=== PATIENT | male | born 2000 | race Caucasian/White ===

== ENCOUNTER 2024-04-13 14:46 | Inpatient (IN) ==
[2024-04-13 15:55] LABS: Appearance Urine Clear (Clear); Bilirubin Urine Negative (Negative); Blood Urine Negative (Negative); Color Urine Yellow; Glucose Urine UA Negative (Negative); Ketones Urine Negative (Negative); Leukocyte Esterase Urine Negative (Negative); Nitrite Urine Negative (Negative); Protein Urine Negative (Negative); Specific Gravity Urine 1.019 (1.000-1.030); Urobilinogen Urine Negative (Negative); pH Urine 5.5 (4.5-7.5)
[2024-04-13 16:21] LABS: Basophils # (auto) 0.04 K/uL (0.00-0.20); Basophils % (auto) 0.8 %; Eosinophils # (auto) 0.04 K/uL (0.00-0.50); Eosinophils % (auto) 0.8 %; Hematocrit (blood only) 51.5 % (42.0-52.0); Hemoglobin 16.6 g/dl (14.0-18.0); Immature Granulocytes # (auto) 0.01 K/uL (0.01-0.20); Immature Granulocytes % (auto) 0.2 %; Lymphocytes % (auto) 31.4 %; Mean Corpuscular Hemoglobin 29.3 pg (25.0-34.0); Mean Corpuscular Hgb Conc 32.2 g/dL (32.0-36.0); Mean Platelet Volume 10.8 fL (9.4-12.4); Monocytes # (auto) 0.56 K/uL (0.11-0.59); Monocytes % (auto) 11.7 %; Neutrophils # (auto) 2.62 K/uL (1.40-6.50); Neutrophils % (auto) 55.1 %; Platelet Count 210 K/uL (130-400); RDW Coefficient of Variation 12.2 % (11.5-14.5); RDW Standard Deviation 40.5 fL (36.4-46.3); Red Blood Count 5.66 M/uL (4.70-6.10); White Blood Count 4.77 K/ul (4.8-10.8)
[2024-04-13 16:35] LABS: Bilirubin,Total 0.7 mg/dl (0.2-1.0); Potassium 4.3 mmol/L (3.5-5.1)
[2024-04-13 16:41] LABS: Albumin Globulin Ratio 1.9 (0.9-2); BUN Creatinine Ratio 9.9 (10-20); Creatinine Clr Calc Pharmacy 105.4 ml/min; Globulin 2.6 gm/dl (2.5-4.0); Total Protein 7.6 gm/dl (6.0-8.3)
--- NOTE | 2024-04-13 16:44 | Emergency Department Note ---
Impression & Plan Suicidal ideation, Depression with suicidal ideation ED Provider Note NAME: ELADIO LEMON AGE: 24 SEX: M : 2000 ARRIVES VIA: Walk-In INFORMANT: Patient, ED PROVIDER(S): Harmony Earl MD CHIEF COMPLAINT: Psychiatric evaluation, SI HPI: This is a 24-year-old male presenting for SI. Patient states that he is overwhelmed by his responsibilities. He does go to school in the area. He notes that he has been on Wellbutrin as prescribed his therapist recommended he come to the hospital for safety check/psychiatric evaluation. Patient does mention active suicidal ideations with plans. He mentions plans to hang himself with a belt and other ropes off of his second floor balcony. ROS: See above HPI for pertinent positives & negatives. A total of 10 systems reviewed and were otherwise negative. PAST MEDICAL HISTORY: See Below PAST SURGICAL HISTORY: See Below FAMILY HISTORY: See Below SOCIAL HISTORY: See Below HOME MEDICATIONS: See Below ALLERGIES: See Below VITALS: See Below PHYSICAL EXAMINATION: General: resting comfortably in no acute distress Head: Normocephalic and atraumatic Eyes: Normal inspection, extraocular muscles intact Ear, nose, throat: Normal external exam Neck: Normal range of motion Respiratory: speaking in full sentences, symmetric chest rise, no respiratory distress Cardiovascular: Regular rate/rhythm Extremities: moves all extremities Neuro: The patient awake and alert, appropriately conversive, symmetric faces, no focal deficits MEDICAL DECISION MAKING: This is a 24-year-old male presenting for SI. Patient notes suicidal ideation with active plan. He is here voluntarily request monitor to help. Will do screening psychiatric workup. - bloodwork is reviewed showing no significant leukocytosis, anemia, electrolyte or creatinine abnormality -Patient is medically clear at this time for psychiatric referral -Patient care signed oncoming physician, Dr. Solis pending psychiatric placement. Differential diagnosis: SI, HI, psychosis Past Med/Surg History Problem List (Updated 04/14/24 @ 21:49 by Harmony Earl MD) Depression with suicidal ideation (Acute) Suicidal ideation (Acute) Social History Smoking Status: Never smoker Preferred Language: Hebrew Communication Ability: Effective Electrotype Finisher Required: No Beliefs That Will Affect Care: None Feels Safe at Home: Yes Gender Identity: Male Assistive Devices: None Allergies Allergies Allergy/AdvReac Type Severity Reaction Status Date / Time No Known Allergies Allergy Unverified 04/13/24 19:45 Home Meds Home Medications Medication Instructions Recorded Confirmed bupropion HCl 150 mg 24 hr tablet, 150 mg PO QAM 04/13/24 04/13/24 extended release (Wellbutrin XL) hydroxyzine HCl 25 mg tablet 25 mg PO TID PRN Anxiety 04/13/24 04/13/24 Results & Data (ED) Vital Signs Vital Signs - 24 hr 04/13/24 14:54 04/13/24 15:51 Temperature 36.9 C 36.5 C Temperature Source Oral Oral Pulse Rate 82 Pulse Rate [Right Finger] 92 H Pulse Rhythm [Right Finger] Regular Pulse Strength [Right Finger] Normal Respiratory Rate 20 20 Respiratory Effort / Characteristics Non-Labored Spontaneous Non-Labored Spontaneous Respiratory Depth Normal Normal Respiratory Pattern Regular Regular Blood Pressure 134/74 Blood Pressure [Right Arm] 112/70 Blood Pressure Mean 94 Blood Pressure Mean [Right Arm] 84 Blood Pressure Position [Right Arm] Sitting Pulse Oximetry 98 98 Oxygen Delivery Method Room Air Room Air Sepsis Recent Fever Within 48 Hours No Sepsis New/Unexplained Change in Mental Status N/A Sepsis Action Taken by Nursing No Action Required Laboratory Data 04/13/24 16:03 04/13/24 16:03 Lab Results 04/13/24 04/13/24 Range/Units 15:11 16:03 WBC 4.77 L (4.8-10.8) K/ul RBC 5.66 (4.70-6.10) M/uL Hgb 16.6 (14.0-18.0) g/dl Hct 51.5 (42.0-52.0) % MCV 91.0 (80.0-100.0) fL MCH 29.3 (25.0-34.0) pg MCHC 32.2 (32.0-36.0) g/dL RDW Std Deviation 40.5 (36.4-46.3) fL RDW Coeff of Pavan 12.2 (11.5-14.5) % Plt Count 210 (130-400) K/uL MPV 10.8 (9.4-12.4) fL Immature Gran % (Auto) 0.2 % Neut % (Auto) 55.1 % Lymph % (Auto) 31.4 % [place] % (Auto) 11.7 % Eos % (Auto) 0.8 % Baso % (Auto) 0.8 % Neut # (Auto) 2.62 (1.40-6.50) K/uL Lymph # (Auto) 1.50 (1.20-3.40) K/uL [place] # (Auto) 0.56 (0.11-0.59) K/uL Eos # (Auto) 0.04 (0.00-0.50) K/uL Baso # (Auto) 0.04 (0.00-0.20) K/uL Immature Gran # (Auto) 0.01 (0.01-0.20) K/uL Sodium 139 (136-145) mmol/L Potassium 4.3 (3.5-5.1) mmol/L Chloride 104 (98-107) mmol/L Carbon Dioxide 30 (21-32) mmol/L Anion Gap 5 (3-11) BUN 9 (6-23) mg/dl Creatinine 0.91 (0.6-1.4) mg/dl Est Cr Clr Drug Dosing 105.4 ml/min eGFR 122.21 BUN/Creatinine Ratio 9.9 L (10-20) Glucose 74 (70-99(Fasting)) mg/dl Calcium 10.0 (8.6-10.3) mg/dl Total Bilirubin 0.7 (0.2-1.0) mg/dl AST 16 (13-39) U/L ALT 9 (7-52) U/L Alkaline Phosphatase 75 (34-104) U/L Total Protein 7.6 (6.0-8.3) gm/dl Albumin 5.0 (3.4-5.0) gm/dl Globulin 2.6 (2.5-4.0) gm/dl Albumin/Globulin Ratio 1.9 (0.9-2) TSH 0.926 (0.300-4.500) uIu/ml Urine Color Yellow Urine Appearance Clear (Clear) Urine pH 5.5 (4.5-7.5) Ur Specific [place] 1.019 (1.000-1.030) Urine Protein Negative (Negative) Urine Glucose (UA) Negative (Negative) Urine Ketones Negative (Negative) Urine Blood Negative (Negative) Urine Nitrite Negative (Negative) Urine Bilirubin Negative (Negative) Urine Urobilinogen Negative (Negative) Ur Leukocyte Esterase Negative (Negative) Salicylates < 3.0 L (3.0-30) mg/dl Urine Opiates Screen Neg (Neg) Ur Methadone, Qual Neg (Neg) Urine Fentanyl Screen Neg (Neg) Acetaminophen < 3 L (10-30) ug/ml Urine Barbiturates Neg (Neg) Ur Phencyclidine (PCP) Neg (Neg) U Amphetamin/Meth Scrn Neg (Neg) MDMA (Ecstasy) Screen Pos H (Neg) U Benzodiazepines Scrn Neg (Neg) Ur Cocaine Metabolite Neg (Neg) U Marijuana (THC) Screen Neg (Neg) Ethyl Alcohol mg/dL < 10.0 (<10.0) mg/dl SARS-CoV-2, RNA, NAAT NEGATIVE (NEGATIVE) Administered Medications Bupropion HCl (Bupropion Xl 150 Mg Tabcr) 150 mg PO QAM SHANNAN Stop: 05/14/24 08:59 Last Admin: 04/14/24 09:50 Dose: 150 mg Documented By: TLF Discontinued Medications Influenza Virus Vacc Triv Types A&B (Influenza Vacc [id number](6m+)/Pf (Iiv3) 0.5ml Syr) 0.5 ml IM .ONCE ONE Stop: 04/14/24 09:01 Last Admin: 04/14/24 10:00 Dose: 0.5 ml Documented By: TLF Discharge Plan Visit Data Chief Complaint: Mental Health Evaluation Stated Complaint: MENTAL HEALTH EVAL ED Provider: Hero Solis Discharge Problem: Suicidal ideation, Depression with suicidal ideation Patient Disposition: Admitted As Inpatient Discharge Instructions Interventions: ED Discharge Assessment Last Done: 04/13/24 23:14
[2024-04-13 16:54] LABS: Acetaminophen < 3 ug/ml (10-30); Salicylate < 3.0 mg/dl (3.0-30)
[2024-04-13 16:55] LABS: Thyroid Stimulating Hormone 0.926 uIu/ml (0.300-4.500)
[2024-04-13 17:02] LABS: Amphetamines+Metham, Urine Neg (Neg); Barbiturates, Urine Neg (Neg); Benzodiazepine, Urine Neg (Neg); Cocaine, Urine Neg (Neg); Fentanyl, Urine Neg (Neg); MDMA (Ecstacy), Urine Pos (Neg); Marijuana, Urine Neg (Neg); Methadone, Urine Neg (Neg); Opiate, Urine Neg (Neg); Phencyclidine, Urine Neg (Neg)
[2024-04-13] MEDS ORDERED: hydrOXYzine HCl 25 MG TAB PO PRN ×2 (21:50→23:48)
--- NOTE | 2024-04-13 21:54 | Emergency Department Note ---
ED Visit Note Received this patient in signout from Dr. Earl. See his note for full details. Patient with suicidal thoughts of possible hanging and wanting for voluntary inpatient treatment is reasonable. With case management assistance, referrals were made. Accepted to [facility] for further inpatient treatment. .
[2024-04-13] MEDS ORDERED: ALUMINUM/MAGNESIUM SUSP 30 ML UDC PO PRN (23:48)
[2024-04-13] MEDS ORDERED: ACETAMINOPHEN 325 MG TAB PO PRN (23:48)
[2024-04-13] MEDS ORDERED: MAGNESIUM HYDROXIDE SUSP 30 ML UDC PO PRN (23:48)
[2024-04-13] MEDS ORDERED: SODIUM CHLORIDE 0.65% NA SOLN 45 ML (OCEAN) PRN (23:48)
[2024-04-13] MEDS ORDERED: BISMUTH SUBSALICYLATE 262 MG CHEW PO PRN (23:48)
[2024-04-14] MEDS ORDERED: buPROPion XL 150 MG TABCR PO SCH (09:00)
[2024-04-14] MEDS: buPROPion XL 150 MG TABCR PO SCH (09:50)
[2024-04-14] MEDS: INFLUENZA VACC TS2024-25(6m+)/PF (IIV3) 0.5mL Syr IM ONE (10:00)
--- NOTE | 2024-04-14 16:05 | History & Physical ---
Date of Service April 14, 2024 Impression / Recommendations Impression 24 yr old M presenting with worsening depression & SI with plan. Symptoms consistent with MDD recurrent severe without psychotic features and JOEL. (1) Depression with suicidal ideation: (2) MDD (major depressive disorder), recurrent episode, severe: Psychotic features: without psychotic features Qualified Code(s): F33.2 - Major depressive disorder, recurrent severe without psychotic features (3) JOEL (generalized anxiety disorder): Plan 04/15/2024: -Increase fluoxetine to 20mg daily 04/14/2024: The patient was admitted to the [facility] ([facility] health unit) on q15 min checks (behavioral with suicide precautions) for safety. The patient will participate in group, recreational, and milieu therapies and will be offered additional individual and family sessions as clinically appropriate. -Fluoxetine 10mg started -Continue prior to admission Wellbutrin XL 150mg Overall, I spent a total of 60 minutes with this case, including review of chart, direct evaluation of the patient, counseling the patient, ordering medication, coordination with nursing, interdisciplinary team meeting, risk assessment, and documentation. Inventory Assets Strengths: intelligence, family support Needs: therapeutic support, social supports Suicide Risk Level Suicide Risk Level: Moderate (q15 min suicide checks) Risk Factors Assessment Male: Yes : No Do You Have Access To A Gun?: No Health Problems: No Mental Health Diagnoses: Yes Substance Use Disorders: No Previous Attempt: No Family History of Suicide: No Previous Psychiatric Hospitalization: No Hopelessness: Yes Protective Factors Assessment : No Responsible for Young Children: No Employed: No Stable Relationships: No Supportive Family: Yes Good Rapport with Provider: Yes Absence of Any Risk Factors Above: Yes Psychiatric History Identifying Data ELADIO LEMON is a 24-year-old M who currently lives alone, has a history of depression, and was admitted on 04/13/24 22:45 on a 201 voluntary commitment for depression with SI. Chief Complaint depression with SI & plan History of Present Illness ELADIO LEMON is a 24-year-old M who currently lives alone, has a history of depression, and was admitted on 04/13/24 22:45 on a 201 voluntary commitment for depression with SI. Patient went to his first therapist appointment to help manage worsening depression and reported SI to her, which prompted her recommending he obtain a crisis assessment. Patient reports having thoughts of suicide with specific plan - was going to fashion a noose out of belts and hang off his balcony, says this seems like the most likely method to work with least chance of complications. Is not sure why he did not act on it as he has been feeling quite depressed and struggling. Currently is able to identify not wanting to hurt his family, however admits that this was difficult to appreciate prior to coming to hospital. Reports prior history of depression as well, described as episodic in nature with anhedonia, isolation, amotivation, low energy, negative ruminations, poor appetite. Prior episodes described as initially mild but progressively more severe with each episode. Sought out therapy recently as current episode has been more severe and difficult to manage. Also describes significant anxiety with overthinking, ruminations, excessive worry, thinking about various ways things can go wrong and ruminations on his own shortcomings. This is described as persisting even when not depressed. Also with intermittent panic attacks. Prior medication trials: fluoxetine - was helpful but thinks it may have increased appetite (though now thinks this may have been more due to improvement in depression and appetite improving). zoloft - took with wellbutrin, had SEs (shaking, headaches) Wellbutrin XL 150mg daily - currently taking, is not sure if helping but thinks may have offered some mild benefit Past Psychiatric History Previous Psych History: on & off therapy in the past, see hpi for more details Current Psychiatric Diagnosis: Depression, Anxiety Previous Psych Admissions: none Do You Have Access To A Gun?: No History of Previous Suicide Attempt: No Past Medication Trials: fluoxetine - was helpful but thinks it may have increased appetite (though now thinks this may have been more due to improvement in depression and appetite improving). zoloft - took with wellbutrin, had SEs (shaking, headaches) Wellbutrin XL 150mg daily - currently taking, is not sure if helping but thinks may have offered some mild benefit Allergies Allergy/AdvReac Type Severity Reaction Status Date / Time No Known Allergies Allergy Unverified 04/13/24 19:45 Home Medications Medication Instructions Recorded Confirmed Type bupropion HCl 150 mg 24 hr tablet, 150 mg PO QAM 04/13/24 04/13/24 History extended release (Wellbutrin XL) hydroxyzine HCl 25 mg tablet 25 mg PO TID PRN Anxiety 04/13/24 04/13/24 History Family History Family History of: Depression (parents) Alcohol History Hx of Alcohol Use Over the Past 12 Months: No (2-3 drinks approx once per month) AUDIT Total Score: 2 Smoking Use Have You Smoked or Used Tobacco Products in the Last 30 Days: No Smoking Status: Never smoker Substance History Hx of Prescription Med Misuse Over the Past 12 Months: No Hx of Over the Counter Med Misuse Over the Past 12 Months: No Hx of Inhalent Misuse Over the Past 12 Months: No Hx of Organic Substance Use Over the Past 12 Months: No Hx of Illegal Substances/Street Drug Use Over Past 12 Months: No Problems as a Result of Past Substance Use: None Identified Personal History Living Arrangements: Home Highest Grade Completed: Graduate School Marital Status: Single Number Of Children: 0 Beliefs That Will Affect Care: None Hx Legal Problems: No Hx Traumatic Life Events: No (denies) Patient History Social History Smoking Status: Never smoker Preferred Language: Bolivian Communication Ability: Effective Digital Strategist Senior Manager Required: No Beliefs That Will Affect Care: None Feels Safe at Home: Yes Gender Identity: Male Assistive Devices: None Physical Exam Psychiatric: Orientation: alert and oriented x 3 Apperance: appropriately dressed and appropriately groomed Eye Contact: good eye contact Motor Behavior: no abnormal motor movements Speech: normal rate/rhythm/volume of speech (relatively monotone) Affect: + depressed affect and + constricted affect Mood: + depressed mood and + anxious mood Thought Process: goal directed thought process Thought Content: reality based without delusions Suicidal Thoughts: denies suicidal plan (none for hospital) and denies suicidal intent; + reports suicidal thoughts Homicidal Thoughts: denies homicidal thoughts Hallucinations: no auditory hallucinations and no visual hallucinations Cognition: recent memory grossly intact, remote memory grossly intact, attention grossly intact and language grossly intact Estimated Intelligence: consistent with education level Insight: + fair insight Judgment: + limited judgement Vital Signs (Past 24 Hours): Last Vital Signs Temp 36.6 C 04/13/24 23:30 Pulse 61 04/13/24 23:30 Resp 18 04/13/24 23:30 BP 112/76 04/13/24 23:30 Pulse Ox 100 04/13/24 23:30 O2 Del Method Room Air 04/13/24 23:30 Exam Statement: A physical exam was performed in the ED by Dr. Earl for the purposes of medical clearance. I accept that physical as correct and adequate for the purposes of the inpatient physical exam. Results & [facility] Laboratory Results Laboratory Results - last 24 hr 04/13/24 04/13/24 15:11 16:03 WBC 4.77 L RBC 5.66 Hgb 16.6 Hct 51.5 MCV 91.0 MCH 29.3 MCHC 32.2 RDW Std Deviation 40.5 RDW Coeff of [place] 12.2 Plt Count 210 MPV 10.8 Immature Gran % (Auto) 0.2 Neut % (Auto) 55.1 Lymph % (Auto) 31.4 [place] % (Auto) 11.7 Eos % (Auto) 0.8 Baso % (Auto) 0.8 Neut # (Auto) 2.62 Lymph # (Auto) 1.50 [place] # (Auto) 0.56 Eos # (Auto) 0.04 Baso # (Auto) 0.04 Immature Gran # (Auto) 0.01 Sodium 139 Potassium 4.3 Chloride 104 Carbon Dioxide 30 Anion Gap 5 BUN 9 Creatinine 0.91 Est Cr Clr Drug Dosing 105.4 eGFR 122.21 BUN/Creatinine Ratio 9.9 L Glucose 74 Calcium 10.0 Total Bilirubin 0.7 AST 16 ALT 9 Alkaline Phosphatase 75 Total Protein 7.6 Albumin 5.0 Globulin 2.6 Albumin/Globulin Ratio 1.9 TSH 0.926 Salicylates < 3.0 L Urine Opiates Screen Neg Ur Methadone, Qual Neg Urine Fentanyl Screen Neg Acetaminophen < 3 L Urine Barbiturates Neg Ur Phencyclidine (PCP) Neg U Amphetamin/Meth Scrn Neg Urine MDEA Pending MDMA (Ecstasy) Screen Pos H MDMA Pending Urine MDMA Pending U Benzodiazepines Scrn Neg Ur Cocaine Metabolite Neg U Marijuana (THC) Screen Neg Ethyl Alcohol mg/dL < 10.0 SARS-CoV-2, RNA, NAAT NEGATIVE Current Inpatient Medications Current Inpatient Medications: Current Inpatient Medications Acetaminophen (Acetaminophen 325 Mg Tab) 650 mg PO Q4H PRN PRN Reason: Headache or Minor Fever Stop: 05/13/24 23:47 Al Hydrox/Mg Hydrox/Simethicone (Aluminum/Magnesium Susp 30 Ml Udc) 30 ml PO Q4H PRN PRN Reason: GI Upset Stop: 05/13/24 23:47 Bismuth Subsalicylate (Bismuth Subsalicylate 262 Mg Chew) 2 tab PO Q30M PRN PRN Reason: Loose Stool/Diarrhea Stop: 05/13/24 23:47 Bupropion HCl (Bupropion Xl 150 Mg Tabcr) 150 mg PO QAM SHANNAN Stop: 05/14/24 08:59 Last Admin: 04/14/24 09:50 Dose: 150 mg Hydroxyzine HCl (Hydroxyzine Hcl 25 Mg Tab) 50 mg PO HSZ PRN PRN Reason: Insomnia Stop: 05/13/24 23:47 Hydroxyzine HCl (Hydroxyzine Hcl 25 Mg Tab) 25 mg PO Q4H PRN PRN Reason: Anxiety Stop: 05/13/24 23:47 Magnesium Hydroxide (Magnesium Hydroxide Susp 30 Ml Udc) 30 ml PO DAILY PRN PRN Reason: Constipation Stop: 05/13/24 23:47 Sodium Chloride (Sodium Chloride 0.65% Na Soln 45 Ml ([place])) 1 - 2 sprays NA PRN PRN PRN Reason: Nasal Dryness/Congestion Stop: 05/13/24 23:47
[2024-04-15] MEDS: FLUoxetine HCL 10 MG CAP PO SCH (08:44)
--- NOTE | 2024-04-15 09:37 | Psychiatric Progress Note ---
Date of Service April 15, 2024 Impression / Recommendations Impression PETER LEMON is a 24-year-old man and [employer] student has a history of depression, anxiety and self-harm, and was admitted on 04/13/24 22:45 on a 201 voluntary commitment for SI with plan to hang himself. Diagnostically consistent with major depressive disorder, generalized anxiety disorder and suspect component of cluster B traits vs OCPD. Reviewed medications and discussed risks, benefits and alternatives. He continues to consent to use of Wellbutrin and fluoxetine for depression and fluoxetine for anxiety. Reviewed side effects including but not limited to: GI, GARCIA, sexual side effects, and counseled on black box warning of potential for emergence of or increased SI and need to let staff know should this occur or should they feel unsafe. Also discussed importance of seeking emergency care following discharge if this side effect occurs in the future. Overall, I spent a total of 55 minutes on this case including meeting with the patient, reviewing the chart, nursing report, multidisciplinary team meeting, orders, and documentation. (1) Depression with suicidal ideation: (2) MDD (major depressive disorder), recurrent episode, severe: (3) JOEL (generalized anxiety disorder): Plan 04/15/2024: -Increase fluoxetine to 20mg daily 04/14/2024: The patient was admitted to the [facility] ([facility] mental health unit) on q15 min checks (behavioral with suicide precautions) for safety. The patient will participate in group, recreational, and milieu therapies and will be offered additional individual and family sessions as clinically approp riate. -Fluoxetine 10mg started -Continue prior to admission Wellbutrin XL 150mg Inventory Assets Strengths: supportive relationships, willing to get treatment Needs: safety and stabilization, medication adjustment, additional coping skills, increased outpatient services Suicide Risk Level Suicide Risk Level: High-Moderate (q15 min suicide checks) (SI with plan and depression prior to admission but SI lessening in hospital, feels safe here, able to ask for support) Risk Factors Assessment Male: Yes : No Do You Have Access To A Gun?: No Health Problems: No Mental Health Diagnoses: Yes Substance Use Disorders: No Previous Attempt: No Previous Psychiatric Hospitalization: No Protective Factors Assessment Employed: Yes (student) Stable Relationships: Yes Supportive Family: Yes Good Rapport with Provider: Yes (therapist) Interval History Identifying Information PETER LEMON is a 24-year-old man and [employer] student has a history of depression, anxiety and self-harm, and was admitted on 04/13/24 22:45 on a 201 voluntary commitment for SI with plan to hang himself. Chief Complaint "I've had a lot of stress". Review of Systems Sleep Information Total Hours of Sleep: 6 Sleep Comments: Meal Information Percent Meal Consumed - Breakfast: 100 Percent Meal Consumed - Lunch: 100 Percent Meal Consumed - Dinner: 100 Subjective Subjective Patient was seen & assessed and interval progress reviewed with treatment team nursing and social work. He's been interactive with peers and engaging in groups. Discusses increased stress and depression and anxiety related to this. Ideally he should be starting to apply for jobs for this upcoming summer but has been overwhelmed by this. He describes that his SI has been lessening since being in the hospital and attributes this in part to recognizing that his SI seems to be a means of "escaping" his stress. He's trying to not fall into this pattern of thinking and is having some success so far, but still having periods of SI. Discusses that his self-harm is "maladaptive" but he feels it is often the thing that helps him cope when he feels overwhelmed by stress, frustration and feeling "stuck". Tolerating medications so far, denies any increased anxiety from Wellbutrin. Is having strange dreams "not my own" but he recalls having these in the past while on Wellbutrin and doesn't find this distressing or bothersome. Physical Exam Psychiatric Orientation: alert and oriented x 3 Apperance: appropriately dressed and appropriately groomed Eye Contact: good eye contact Motor Behavior: no abnormal motor movements Speech: normal rate/rhythm/volume of speech Affect: + depressed affect and + constricted affect Mood: + depressed mood and + anxious mood Thought Process: goal directed thought process Thought Content: reality based without delusions Suicidal Thoughts: denies suicidal plan (none for hospital) and denies suicidal intent; + reports suicidal thoughts Homicidal Thoughts: denies homicidal thoughts Hallucinations: no auditory hallucinations and no visual hallucinations Cognition: recent memory grossly intact, remote memory grossly intact, attention grossly intact and language grossly intact Estimated Intelligence: consistent with education level Insight: + fair insight Judgment: + limited judgement Vital Signs (Past 24 Hours) Last Vital Signs Temp 36.6 C 04/15/24 06:50 Pulse 66 04/15/24 06:50 Resp 16 04/15/24 06:50 BP 102/65 04/15/24 06:51 Pulse Ox 96 04/15/24 06:50 O2 Del Method Room Air 04/15/24 06:50 Results & Data ([facility]) Current Inpatient Medications Current Inpatient Medications: Current Inpatient Medications Acetaminophen (Acetaminophen 325 Mg Tab) 650 mg PO Q4H PRN PRN Reason: Headache or Minor Fever Stop: 05/13/24 23:47 Al Hydrox/Mg Hydrox/Simethicone (Aluminum/Magnesium Susp 30 Ml Udc) 30 ml PO Q4H PRN PRN Reason: GI Upset Stop: 05/13/24 23:47 Bismuth Subsalicylate (Bismuth Subsalicylate 262 Mg Chew) 2 tab PO Q30M PRN PRN Reason: Loose Stool/Diarrhea Stop: 05/13/24 23:47 Bupropion HCl (Bupropion Xl 150 Mg Tabcr) 150 mg PO QAM SHANNAN Stop: 05/14/24 08:59 Last Admin: 04/15/24 08:44 Dose: 150 mg Fluoxetine HCl (Fluoxetine Hcl 10 Mg Cap) 10 mg PO QAM SHANNAN Stop: 05/15/24 08:59 Last Admin: 04/15/24 08:44 Dose: 10 mg Hydroxyzine HCl (Hydroxyzine Hcl 25 Mg Tab) 50 mg PO HSZ PRN PRN Reason: Insomnia Stop: 05/13/24 23:47 Hydroxyzine HCl (Hydroxyzine Hcl 25 Mg Tab) 25 mg PO Q4H PRN PRN Reason: Anxiety Stop: 05/13/24 23:47 Magnesium Hydroxide (Magnesium Hydroxide Susp 30 Ml Udc) 30 ml PO DAILY PRN PRN Reason: Constipation Stop: 05/13/24 23:47 Sodium Chloride (Sodium Chloride 0.65% Na Soln 45 Ml ([place])) 1 - 2 sprays NA PRN PRN PRN Reason: Nasal Dryness/Congestion Stop: 05/13/24 23:47 Mental Health & Subst Abuse Tx Therapist Name of Therapist: Dr. Yvette Macias Date of Therapist Appointment: 02/11/24 Time of Therapist Appointment: N/A Professional Advisor Name of Professional Advisor: N/A Post Discharge Appointments Primary Care Physician Name Of Family Doctor/PCP: Dr. Felipa Cuellar Time of Appointment with PCP: 02/10/24 Specialist Name of Specialist: Peter Crystal - Professional Advisor @ [employer]
[2024-04-15] MEDS: hydrOXYzine HCl 25 MG TAB PO PRN (23:50)
[2024-04-16] MEDS: FLUoxetine HCL 20 MG CAP PO SCH (08:44)
--- NOTE | 2024-04-16 09:17 | Psychiatric Progress Note ---
Date of Service April 16, 2024 Impression / Recommendations Impression PETER LEMON is a 24-year-old man and [employer] student has a history of depression, anxiety and self-harm, and was admitted on 04/13/24 22:45 on a 201 voluntary commitment for SI with plan to hang himself. Diagnostically consistent with major depressive disorder, generalized anxiety disorder and suspect component of OCPD. A: Mood improving, thinking about ways to address some of the driving factors of his SI including when he gets overwhelmed academically and procrastinates. Needs family support meeting, will need additional outpatient provider for psychiatric medication management. Tolerating fluoxetine and Wellbutrin well without any side effects. Overall, I spent a total of 50 minutes on this case including meeting with the patient, reviewing the chart, nursing report, multidisciplinary team meeting, orders, and documentation. (1) Depression with suicidal ideation: (2) MDD (major depressive disorder), recurrent episode, severe: (3) JOEL (generalized anxiety disorder): Plan 04/16/2024: Continue current medications and tx plan. 04/15/2024: -Increase fluoxetine to 20mg daily 04/14/2024: The patient was admitted to the [facility]) on q15 min checks (behavioral with suicide precautions) for safety. The patient will participate in group, recreational, and milieu therapies and will be offered additional individual and family sessions as clinically appropriate. -Fluoxetine 10mg started -Continue prior to admission Wellbutrin XL 150mg Overall, I spent a total of 60 minutes with this case, including review of chart, direct evaluation of the patient, counseling the patient, ordering medication, coordination with nursing, interdisciplinary team meeting, risk assessment, and documentation. Inventory Assets Strengths: intelligence, family support Needs: therapeutic support, social supports Suicide Risk Level Suicide Risk Level: Moderate (q15 min suicide checks) (SI with plan and depression prior to admission but today denies SI, mood improving, feels safe here, able to ask for support) Risk Factors Assessment Male: Yes : No Do You Have Access To A Gun?: No Health Problems: No Mental Health Diagnoses: Yes Substance Use Disorders: No Previous Attempt: No Family History of Suicide: No Previous Psychiatric Hospitalization: No Hopelessness: Yes Protective Factors Assessment : No Responsible for Young Children: No Employed: Yes (student) Stable Relationships: No Supportive Family: Yes Good Rapport with Provider: Yes Absence of Any Risk Factors Above: Yes Interval History Identifying Information PETER LEMON is a 24-year-old man and [employer] student has a history of depression, anxiety and self-harm, and was admitted on 04/13/24 22:45 on a 201 voluntary commitment for SI with plan to hang himself. Chief Complaint "I'm trying to stay focused on ways to add structure to my day to mitigate stress". Review of Systems Sleep Information Total Hours of Sleep: 6.25 Sleep Comments: PRN Vistaril Meal Information Percent Meal Consumed - Breakfast: 100 Percent Meal Consumed - Lunch: 75 Percent Meal Consumed - Dinner: 100 Subjective Subjective Patient was seen & assessed and interval progress reviewed with treatment team nursing and social work. Watched a movie with peers. Attending groups. Visited with his parents. Took prn Vistaril last night which he found helpful for sleep, he usually sleeps well but finds the bed here not very comfortable and suspects that being away from his normal space is also impacting his sleep a bit. He doesn't anticipate he'll have issues with sleep once he's at home but likes having option of Vistaril. Today reports improvement in his mood. Denies SI. Discusses ways he is hoping to reduce some of his stressors, such as procrastination, that he feels contributed to his worsening depression and feeling a need to escape prompting SI. He feels that recognizing that his thoughts of suicide were filling the role of a "mental escape" is helping him not have these thoughts now. Discussed some of what he had shared in his therapy intake and initial outpatient appointment based on my review of the documentation sent from his outpatient therapist. He reflects on his goal of working in therapy to challenge some of his cognitive distortions and high expectations he has for himself that he feels leads to having shame when he can't accomplish what he wants or cannot meet his high expectations. He is hoping for discharge tomorrow, if today goes well, as he wants to get back to his classes. He asked about we reviewed strategies to overcome some of his procrastination and ways to limit screentime use as he feels this also gets in the way of his routine. Physical Exam Psychiatric Orientation: alert and oriented x 3 Apperance: appropriately dressed and appropriately groomed Eye Contact: good eye contact Motor Behavior: no abnormal motor movements Speech: normal rate/rhythm/volume of speech Affect: + constricted affect Mood: + depressed mood and + anxious mood Thought Process: goal directed thought process Thought Content: reality based without delusions Suicidal Thoughts: denies suicidal thoughts, denies suicidal plan and denies suicidal intent Homicidal Thoughts: denies homicidal thoughts Hallucinations: no auditory hallucinations and no visual hallucinations Cognition: recent memory grossly intact, remote memory grossly intact, attention grossly intact and language grossly intact Estimated Intelligence: consistent with education level Insight: + fair insight Judgment: + fair judgement Vital Signs (Past 24 Hours) Last Vital Signs Temp 36.6 C 04/16/24 06:00 Pulse 74 04/16/24 06:32 Resp 18 04/16/24 06:00 BP 95/62 L 04/16/24 06:32 Pulse Ox 98 04/16/24 06:00 O2 Del Method Room Air 04/16/24 06:00 Results & Data ([facility]) Current Inpatient Medications Current Inpatient Medications: Current Inpatient Medications Acetaminophen (Acetaminophen 325 Mg Tab) 650 mg PO Q4H PRN PRN Reason: Headache or Minor Fever Stop: 05/13/24 23:47 Al Hydrox/Mg Hydrox/Simethicone (Aluminum/Magnesium Susp 30 Ml Udc) 30 ml PO Q4H PRN PRN Reason: GI Upset Stop: 05/13/24 23:47 Bismuth Subsalicylate (Bismuth Subsalicylate 262 Mg Chew) 2 tab PO Q30M PRN PRN Reason: Loose Stool/Diarrhea Stop: 05/13/24 23:47 Bupropion HCl (Bupropion Xl 150 Mg Tabcr) 150 mg PO QAM SHANNAN Stop: 05/14/24 08:59 Last Admin: 04/16/24 08:44 Dose: 150 mg Fluoxetine HCl (Fluoxetine Hcl 20 Mg Cap) 20 mg PO QAM SHANNAN Stop: 05/16/24 08:59 Last Admin: 04/16/24 08:44 Dose: 20 mg Hydroxyzine HCl (Hydroxyzine Hcl 25 Mg Tab) 50 mg PO HSZ PRN PRN Reason: Insomnia Stop: 05/13/24 23:47 Last Admin: 04/15/24 23:50 Dose: 50 mg Hydroxyzine HCl (Hydroxyzine Hcl 25 Mg Tab) 25 mg PO Q4H PRN PRN Reason: Anxiety Stop: 05/13/24 23:47 Magnesium Hydroxide (Magnesium Hydroxide Susp 30 Ml Udc) 30 ml PO DAILY PRN PRN Reason: Constipation Stop: 05/13/24 23:47 Sodium Chloride (Sodium Chloride 0.65% Na Soln 45 Ml ([place])) 1 - 2 sprays NA PRN PRN PRN Reason: Nasal Dryness/Congestion Stop: 05/13/24 23:47 Mental Health & Subst Abuse Tx Therapist Name of Therapist: Dr. Yvette Macias Date of Therapist Appointment: 02/11/24 Time of Therapist Appointment: N/A [employer] Worker Name of [employer] Maintenance Worker: N/A Post Discharge Appointments Primary Care Physician Name Of Family Doctor/PCP: Dr. Felipa Cuellar Time of Appointment with PCP: 02/10/24 Specialist Name of Specialist: Peter Crystal - [employer] Worker @ [employer] [facility] [employer] [facility] (2) MDD (major depressive disorder), recurrent episode, severe Psychotic features: without psychotic features Qualified Code(s): F33.2 - Major depressive disorder, recurrent severe without psychotic features
--- NOTE | 2024-04-17 08:56 | Discharge Summary ---
Date of Service April 17, 2024 History of Present Illness Per admission H&P by Dr. Watts: PETER LEMON is a 24-year-old M who currently lives alone, has a history of depression, and was admitted on 04/13/24 22:45 on a 201 voluntary commitment for depression with SI. Patient went to his first therapist appointment to help manage worsening depression and reported SI to her, which prompted her recommending he obtain a crisis assessment. Patient reports having thoughts of suicide with specific plan - was going to fashion a noose out of belts and hang off his balcony, says this seems like the most likely method to work with least chance of complications. Is not sure why he did not act on it as he has been feeling quite depressed and struggling. Currently is able to identify not wanting to hurt his family, however admits that this was difficult to appreciate prior to coming to hospital. Reports prior history of depression as well, described as episodic in nature with anhedonia, isolation, amotivation, low energy, negative ruminations, poor appetite. Prior episodes described as initially mild but progressively more severe with each episode. Sought out therapy recently as current episode has been more severe and difficult to manage. Also describes significant anxiety with overthinking, ruminations, excessive worry, thinking about various ways things can go wrong and ruminations on his own shortcomings. This is described as persisting even when not depressed. Also with intermittent panic attacks. Prior medication trials: fluoxetine - was helpful but thinks it may have increased appetite (though now thinks this may have been more due to improvement in depression and appetite improving). zoloft - took with wellbutrin, had SEs (shaking, headaches) Wellbutrin XL 150mg daily - currently taking, is not sure if helping but thinks may have offered some mild benefit Physical Exam Vital Signs (Past 24 Hours) Last Vital Signs Temp 36.6 C 04/17/24 06:41 Pulse 72 04/17/24 06:41 Resp 16 04/17/24 06:41 BP 99/58 L 04/17/24 06:43 Pulse Ox 98 04/17/24 06:41 O2 Del Method Room Air 04/17/24 06:41 Principal Diagnosis Major Depressive Disorder Psychiatric Data See daily stay summary. In short, patient was engaged with the social/therapeutic milieu of the unit, safety was maintained and the patient was cooperative with care. Medication changes included continuation of prior to admission Wellbutrin 150mg XL and addition of fluoxetine 20mg daily for MDD and JOEL and they tolerated this well. If anxiety worsens in the future could consider discontinuation of Wellbutrin in favor of fluoxetine monotherapy or option in future for SNRI trial if symptoms re-emerge. A support session was held and safety plan was completed prior to discharge. They participated in safety planning and in discussions about ways to seek support and recognizing warning signs and utilizing coping skills. Reviewed ways to have their safety plan and contacts easily available should thoughts of SI re-emerge in the future. Reviewed importance of seeking emergency care should SI intensify, worsen or should they feel unsafe in the future which they agree to do. On the day of discharge they stated their mood was "positive" and remained future-oriented including getting back to classes and activities, spending time with his mom and engaging in aftercare appointments for psychiatry, therapy, primary care provider and [employer] student care and advocacy. Day of Discharge Assessment Today the patient voices readiness for discharge. They note improvement in mood and anxiety. They deny thoughts of harm to self or others. Thoughts are org anized and they are clinically improved from admission. There is no evidence of psychosis. They improved in the hospital with support and medication adjustments. They agree to take medications as prescribed and keep follow-up appointments. At the time of the discharge they are deemed to be stable and appropriate for outpatient level of care. They are not deemed to be at imminent risk of harm to self or others. They are aware of emergency and crisis services. Knows to call 911 or go to nearest emergency care center if in a crisis which cannot be handled as an outpatient. Suicide risk assessment: Acute risk is low given improvement in mood and denial of SI, lack of access to lethal means, hopefulness. Chronic risk is moderate given some non-modifiable risk factors: psychiatric co-morbid diagnoses, hx self-harm but also with protective factors including: student, good social support, sense of responsibility to family and social supports, outpatient care in place, positive coping skills, positive problem solving, willingness to engage with treatment and self-observation. Counseled on ways to reduce acute and chronic risk including engaging with outpatient providers, using safety plan if needed, utilizing supports, taking medication, and using coping skills. Modifiable risk factors of SI and depression were addressed during hospitalization through development of new coping skills, support meeting, safety planning, and medication adjustments. Discharge physical exam: See admission H&P, MSE per above and day of discharge summary. Overall, I spent a total of 35 minutes on this case including meeting with the patient, reviewing the chart, nursing report, multidisciplinary team meeting, discharge orders, anticipatory planning, safety planning, risk assessment and documentation. Transition of Care Transition Of Care Record: was reviewed with the patient Advance Directives Advance Directives Information Provided: Yes Advance Directives: No Mental Health Advance Directive: No Advance Directives on File: No Living Will: No Power of Seasonal Driver: No Advance Directives Reason:: Declines as Mental Health Visit. Suicide Risk Level Suicide Risk Level Comments: Acute risk is low, see assessment above Risk Factors Assessment Male: Yes : No Do You Have Access To A Gun?: No Health Problems: No Mental Health Diagnoses: Yes Substance Use Disorders: No Previous Attempt: No Family History of Suicide: No Previous Psychiatric Hospitalization: No Hopelessness: No Protective Factors Assessment : No Responsible for Young Children: No Employed: Yes (student) Stable Relationships: Yes Supportive Family: Yes Good Rapport with Provider: Yes Absence of Any Risk Factors Above: Yes Discharge Data Lab Results 04/13/24 04/13/24 15:11 16:03 WBC 4.77 L RBC 5.66 Hgb 16.6 Hct 51.5 MCV 91.0 MCH 29.3 MCHC 32.2 RDW Std Deviation 40.5 RDW Coeff of Pavan 12.2 Plt Count 210 MPV 10.8 Immature Gran % (Auto) 0.2 Neut % (Auto) 55.1 Lymph % (Auto) 31.4 [place] % (Auto) 11.7 Eos % (Auto) 0.8 Baso % (Auto) 0.8 Neut # (Auto) 2.62 Lymph # (Auto) 1.50 [place] # (Auto) 0.56 Eos # (Auto) 0.04 Baso # (Auto) 0.04 Immature Gran # (Auto) 0.01 Sodium 139 Potassium 4.3 Chloride 104 Carbon Dioxide 30 Anion Gap 5 BUN 9 Creatinine 0.91 Est Cr Clr Drug Dosing 105.4 eGFR 122.21 BUN/Creatinine Ratio 9.9 L Glucose 74 Calcium 10.0 Total Bilirubin 0.7 AST 16 ALT 9 Alkaline Phosphatase 75 Total Protein 7.6 Albumin 5.0 Globulin 2.6 Albumin/Globulin Ratio 1.9 TSH 0.926 Urine Color Yellow Urine Appearance Clear Urine pH 5.5 Ur Specific [place] 1.019 Urine Protein Negative Urine Glucose (UA) Negative Urine Ketones Negative Urine Blood Negative Urine Nitrite Negative Urine Bilirubin Negative Urine Urobilinogen Negative Ur Leukocyte Esterase Negative Salicylates < 3.0 L Urine Opiates Screen Neg Ur Methadone, Qual Neg Urine Fentanyl Screen Neg Acetaminophen < 3 L Urine Barbiturates Neg Ur Phencyclidine (PCP) Neg U Amphetamin/Meth Scrn Neg MDMA (Ecstasy) Screen Pos H U Benzodiazepines Scrn Neg Ur Cocaine Metabolite Neg U Marijuana (THC) Screen Neg Ethyl Alcohol mg/dL < 10.0 SARS-CoV-2, RNA, NAAT NEGATIVE Hospital Course (1) Depression with suicidal ideation: (2) MDD (major depressive disorder), recurrent episode, severe: (3) JOEL (generalized anxiety disorder): Plan 04/17/2024: Safe and ready for discharge 04/16/2024: Continue current medications and tx plan. 04/15/2024: -Increase fluoxetine to 20mg daily 04/14/2024: The patient was admitted to the [facility] ([facility]) on q15 min checks (behavioral with suicide precautions) for safety. The patient will participate in group, recreational, and milieu therapies and will be offered additional individual and family sessions as clinically appropriate. -Fluoxetine 10mg started -Continue prior to admission Wellbutrin XL 150mg Mental Health & Subst Abuse Tx Therapist Name of Therapist: Dr. Yvette Macias Date of Therapist Appointment: 02/11/24 Time of Therapist Appointment: N/A [employer] Machine Operator Name of [employer] Operator: N/A Post Discharge Appointments Primary Care Physician Name Of Family Doctor/PCP: Dr. Felipa Cuellar Time of Appointment with PCP: 02/10/24 Specialist Name of Specialist: Peter Crystal - [employer] Machine Operator @ [employer] [facility] Discharge Plan Discharge Items Patient Disposition: Home - Self-Care Reason For Visit: UNSPECIFIED DEPRESSION Discharge Diagnosis: Major Depressive Disorder Activity: Resume your previous activity Non-emergency contact: Primary Care Provider, Psychiatrist and Therapist Call non-emergency contact if: you have any medication questions and your symptoms worsen Follow-up/Referrals: Felipa Cuellar MD [Primary Care Provider] - Diet: Regular Addtl Attending Provider Instructions: Optional mobile apps: -Suicide safety plan -Virtual Hope Box -Headspace $ SPECIAL CARE INSTRUCTIONS: 1. Follow through with your scheduled aftercare appointments. If unable to keep an appointment, please call to reschedule. 2. Take your medication only as prescribed. Medication should not be changed or stopped without the approval of your doctor. In the event of worsening symptoms or concerns about side effects, contact your doctor immediately. 3. Utilize new healthy coping skills, anger management skills, and stress management skills learned during your hospitalization. Journal feelings and process them with a support person. Identify stressors or situations that may result in relapse, deterioration or inappropriate behaviors and develop a plan to deal with those issues. 4. If your coping skills are ineffective and you are in crisis, contact your outpatient providers for direction. If unable to reach your providers, please call the [facility] CRISIS LINE AT , go to the [facility] walk-in center at [address], [place], or go to the closest Emergency Room. 5. Avoid alcohol and un-prescribed drugs. 6. You have been provided with the Mental Health Advance Directives Pamphlet for your review. 7. Your condition is stable for discharge to outpatient level of care, but recovery is an ongoing process. Ifthoughts to harm yourself or others return, follow the safety plan developed during your stay. Planning for a safe return home includes securing weapons. Our treatment team recommends weaponsbe removed from the home until your outpatient provider reassesses your progress. In rare cases where the items themselvescannot be removed, guns and ammunitionshould be secured separatelyand keys stored by a reliable personoutside of the home. If you were admitted on an involuntary commitment, the police or other legal authorities may be involved in this process. AFTERCARE APPOINTMENTS: * Please call your insurance company prior to your scheduled appointment to confirm your aftercare providers are covered. Take your insurance information to your appointments. WHO TO CALL AND WHEN: Medical Emergencies: For questions or emergencies related to your hospital stay, please contact the Inpatient Behavioral Health Unit at [phone]. A supervisor cytology is on-call 25/01 for the Behavioral Health Unit for emergencies At any time you feel your situation is an emergency, you may also call 911 immediately. National Crisis Hotline: 981 Pending Studies at Discharge: No Stand-Alone Forms: [facility] Medications and DC Order Prescriptions: New fluoxetine 20 mg Capsule 20 mg PO QAM 30 Days Qty: 30 0RF Continued hydroxyzine HCl 25 mg Tablet 25 mg PO TID PRN (Reason: Anxiety) bupropion HCl [Wellbutrin XL] 150 mg Tablet Extended Release 24 Hr 150 mg PO QAM Discharge Orders: Discharge Order (Routine); Ordered 04/17/24 Ordered By: Izabella Lion Admission Data Admit Date/Time: 04/13/24 22:45 Attending Provider: Izabella Lion Admit Provider: Parul Watts Primary Care Provider: Felipa Cuellar Coding Level of Care Code 57396 D/C day mgmt > 30 min Diagnoses Depression with suicidal ideation F32.A; R45.851 Severe episode of recurrent major depressive disorder, without psychotic features F33.2 Psychotic features: without psychotic features JOEL (generalized anxiety disorder) F41.1
[2024-04-18 11:27] LABS: MDA negative; MDEA negative; MDMA (Ecstasy) Urine, Confirm negative
== END 2024-04-17 14:15 | disposition home or self-care (01) | DRG 885 ==
LOC: ED 14:46 → SUATTDRO 22:45 → 3S 22:45